=== PATIENT | female | born 2000 | race Two or more races ===

== ENCOUNTER → 2023-02-17 | Emergency (ER) | payer OTHER ==
[~2023-02-17] VITALS: Ht 149.9 cm; Wt 48.1 kg
[~2023-02-17] MED LIST: SINGULAIR4 MG PO; ZYRTEC10 MG PO
== END | disposition left against medical advice (07) ==
LOC: ER 20:48
DX: R05.9 Cough, unspecified (principal)

== ENCOUNTER 2023-03-01 14:18 | Emergency (ER) | payer OTHER ==
[~2023-03-01] VITALS: Ht 149.9 cm; Wt 47.2 kg
== END 2023-03-01 21:26 | disposition home or self-care (01) ==
LOC: ER 14:18
DX: R05.9 Cough, unspecified (principal); Z20.822 Contact with and (suspected) exposure to COVID-19